=== PATIENT | female | born 1955 | race Two or more races ===

== ENCOUNTER 2017-12-18 09:58 | Outpatient (CLI) | payer OTHER | END 2017-12-18 10:03 | disposition home or self-care (01) | LOC: RAD 501 09:58 | DX: M17.0 Bilateral primary osteoarthritis of knee (principal); M25.562 Pain in left knee; M25.561 Pain in right knee; M25.552 Pain in left hip; M25.551 Pain in right hip ==

== ENCOUNTER 2017-12-25 09:26 | Outpatient (CLI) | payer OTHER | END 2017-12-25 10:40 | disposition home or self-care (01) | LOC: RAD 501 09:26 | DX: M17.11 Unilateral primary osteoarthritis, right knee (principal); M17.12 Unilateral primary osteoarthritis, left knee ==

== ENCOUNTER 2020-06-08 17:04 | Inpatient (IN) | payer OTHER ==
[~2020-06-08] VITALS: Ht 149.9 cm; Wt 81.6 kg
[2020-06-09] MEDS ORDERED: IRBESARTAN300 MG (08:08)
[2020-06-09] MEDS ORDERED: AMLODIPINE BESYL5 MG (08:08)
[2020-06-09] MEDS ORDERED: PANTOPRAZOLE SO40 MG (08:08)
[2020-06-09] MEDS ORDERED: MONTELUKAST SOD10 MG (08:09)
== END 2020-06-10 07:30 | disposition home or self-care (01) | DRG 812 ==
LOC: SEC-K 17:04 → MEDI 06-09 15:07 → MEDJ 06-09 15:07 → MEDI 06-10 07:30
PROVIDERS: ADMIT Internal Medicine Cardiovascular Disease; ATTEND Internal Medicine Cardiovascular Disease
PROC: 30233N1 Transfusion of Nonautologous Red Blood Cells into Peripheral Vein, Percutaneous Approach (ICD-10-PCS; principal; 2020-06-08)
DX: D50.8 Other iron deficiency anemias (principal); Z98.84 Bariatric surgery status

== ENCOUNTER 2022-05-13 17:50 | Emergency (ER) | payer OTHER ==
[~2022-05-13] VITALS: Ht 144.8 cm; Wt 86.2 kg
[~2022-05-13 17:50] MED LIST: AMLODIPINE BESYL5 MG; IRBESARTAN300 MG; MONTELUKAST SOD10 MG; PANTOPRAZOLE SO40 MG
== END 2022-05-14 00:11 | disposition home or self-care (01) ==
LOC: ER 17:50
DX: J44.1 Chronic obstructive pulmonary disease with (acute) exacerbation (principal); J45.901 Unspecified asthma with (acute) exacerbation; I10 Essential (primary) hypertension

== ENCOUNTER 2023-03-25 15:29 | Inpatient (IN) | payer OTHER ==
[~2023-03-25] VITALS: Ht 149.9 cm; Wt 85.3 kg
--- NOTE | 2023-03-25 15:42 | NUR ---
PTE ALERTA Y ORIENTADA X3, REFIERE COVID POSITIVO. DOLOR DE GARGANTA, FIEBRE, DOLOR EN EL CUERPO Y OXIGENANDO BAJO. AL MOMENTO DE TRIAGE OXIGENANDO 95%. DR. LARSEN INDICA LA ACOMODE EN OBSERVACION. SE XIOMARA SV Y SE ACOMODA.
[2023-03-25] MEDS ORDERED: AVAPRO300 MG PO (15:44)
[2023-03-25] MEDS ORDERED: SINGULAIR4 M1 PO (15:44)
[2023-03-25] MEDS ORDERED: NORVASC2.5 M1 PO (15:44)
--- NOTE | 2023-03-25 17:21 | NUR ---
PTE ALERTA Y ORIENTADA X3. SE REALIZAN MUESTRAS DE LAB MARY ORDEN MEDICA Y BAJO MEDIDAS ASEPTICAS. SE REALIZA VENOPUNCION EN MANO RT #22, AREA PATENTE. SE ADMINSITRA MEDICAMENTO MARY ORDEN MEDICA Y BAJO MEDIDAS ASEPTICAS. SE NOTIFICA ABG A TR.
[2023-03-26] MEDS ORDERED: AMLODIPINE BESYL5 MG (15:30)
[2023-03-26] MEDS ORDERED: SPIRIVA RESPIMAT4 GM (15:31)
[2023-03-26] MEDS ORDERED: PANTOPRAZOLE SO40 MG (15:31)
[2023-03-26] MEDS ORDERED: SYMBICORT 16010.2 GM (15:31)
[2023-03-26] MEDS ORDERED: MONTELUKAST SOD10 MG (15:31)
== END 2023-03-30 17:11 | disposition home or self-care (01) | DRG 177 ==
LOC: ER 15:29 → SEC-K 22:40 → MEDJ 03-26 22:02
PROVIDERS: ADMIT Specialist; ATTEND Specialist
PROC: BW24ZZZ Computerized Tomography (CT Scan) of Chest and Abdomen (ICD-10-PCS; 2023-03-25)
PROC: XW033E5 Introduction of Remdesivir Anti-infective into Peripheral Vein, Percutaneous Approach, New Technology Group 5 (ICD-10-PCS; principal; 2023-03-27)
PROC: 4A12X4Z Monitoring of Cardiac Electrical Activity, External Approach (ICD-10-PCS; 2023-03-27)
DX: U07.1 COVID-19 (principal); J12.82 Pneumonia due to coronavirus disease 2019; N39.0 Urinary tract infection, site not specified; J45.909 Unspecified asthma, uncomplicated; I10 Essential (primary) hypertension; Z74.01 Bed confinement status; B96.1 Klebsiella pneumoniae [K. pneumoniae] as the cause of diseases classified elsewhere